=== PATIENT | female | born 1970 | race Caucasian/White ===

== ENCOUNTER → 2018-03-09 | Outpatient (CLI) | payer OTHER | LOC: MERGE 08:01 → BRMIMAGING 08:01 | PROVIDERS: ATTEND Family Medicine | DX: Z12.31 Encounter for screening mammogram for malignant neoplasm of breast (principal) ==

== ENCOUNTER 2018-12-26 11:04 | Emergency (ER) | payer OTHER ==
--- NOTE | 2018-12-26 12:29 | EDPHY ---
General Time Seen by Provider: 12/26/18 12:29 Narrative: CLINICAL IMPRESSION: URI, cough ASSESSMENT/PLAN: Patient is a 48-year-old female with no significant medical history who presents to the emergency department with 7 days of ongoing postnasal drip, throat irritation and cough. Her vitals were reviewed, no findings to suggest sepsis. CBC with no evidence of leukocytosis. BMP grossly unremarkable. Dimer mildly elevated, CT a chest revealed no evidence of pulmonary embolism. History of physical examination is most consistent with upper respiratory infection and cough, likely viral in nature. No findings today to suggest significant sinusitis, pharyngitis, epiglottitis, pneumonia, pulmonary embolism or serious bacterial illness. She had a recent influenza at urgent care that was negative, I did not feel this needs to be repeated. The patient will continue to be treated symptomatically, she will continue her prescriptions for prednisone, albuterol, Tessalon and codeine cough syrup as previously directed. She is well established with her primary care doctor and will call to schedule appointment for repeat examination. Conservative return precautions discussed. DIFFERENTIAL DX: Differential diagnosis including but not limited to viral infection, influenza, sinusitis, meningitis, pneumonia, pulmonary embolism ED COURSE: 1322: Case discussed with Dr. Deleon 1425: On repeat examination the patient still with dry cough, states she does not feel better after the nebulized treatment. Dimer is mildly elevated at 0.52. Will proceed with chest CT a. 1516: CTA with no evidence of pulmonary embolus. She does have an incidental pulmonary nodule that will need to have a repeat CT in 6-12 months. Examination was otherwise unremarkable. CHIEF COMPLAINT: Runny nose, congestion, cough, throat irritation HPI: Patient is a 48-year-old female with a history of hypothyroidism who presents to the emergency department with 7 days of ongoing postnasal drip, throat irritation and cough. Patient reports she recently traveled to [place], [facility] and [facility], during her 3 day travel home she started to have runny nose, congestion and postnasal drip. Since she has been home her symptoms have continued to worsen, she has now developed a very dry cough. She feels like no matter how hard she coughs she cannot get anything up. She has had intermittent fevers and chills, she has been regularly taking Tylenol. She reports bilateral earache, postnasal drip, throat irritation and cough. She denies any nausea, vomiting or abdominal pain. She is now developing general myalgias, denies headache or neck stiffness. She was seen and evaluated prior to her visit today by urgent care on 2 different occasions. At her 1st urgent care visit they prescribed her albuterol, codeine with cough syrup and Tessalon Perles, she had no improvement of her symptoms. She went back to urgent care yesterday with persistent symptoms, chest x-ray reportedly normal, they gave her ProAir and prednisone for which she has 2 doses and she is still not feeling better. Patient also with a reported negative influenza and RSV swab this weekend. PMH: Hypothyroidism Family History: Not contributory Social History: Never smoker, REVIEW OF SYSTEMS: All other systems negative Constitutional: Fevers and chills. Eyes: No discharge, vision change ENT: Throat tickle, congestion, earache. Cardiovascular: No chest pain, no palpitations. Respiratory: Cough. Gastrointestinal: No abdominal pain, no vomiting, diarrhea. Genitourinary: No hematuria, dysuria, flank pain. Musculoskeletal: Myalgias. No back pain, joint swelling, joint pain. Skin: No rashes, color change. Neurological: No headache, dizziness, weakness. PHYSICAL EXAM: General Appearance: Alert, tired appearing however not toxic-appearing. HENT: Normocephalic, atraumatic. Bilateral external ears are normal. Bilateral tympanic membranes are normal with pearly hudson reflex. Nares are clear, mucosa is pink. Oropharynx is clear, uvula is midline. There is no tonsillar enlargement or exudate. The dentition is normal. Her phonation is normal without hot potato voice. There is no stridor. Eyes: PERRLA, no acute vision change, nystagmus, swelling, discharge, pain or photosensitivity. Conjunctiva pink, no pallor or injection. Neck: Supple, nontender, no lymphadenopathy, no midline pain, FROM, no meningismus. Respiratory: There are no retractions, breath sounds globally diminished, faint expiratory wheeze. Frequent dry cough. Cardiac: Regular rate and rhythm, no murmurs or gallops. Gastrointestinal: Abdomen is soft, nontender, bowel sounds normal, no masses/ hernia, no rigidity, guarding or focal peritoneal findings. Neurological: Alert and oriented x 3, CN 2-12 grossly intact. Skin: Warm, dry, no rashes, no nodules on palpation. Musculoskeletal: Extremities are symmetrical, full range of motion, no tenderness, deformity, swelling, or erythema. Psychiatric: Normal mood and affect, there is no agitation. MEDICAL DECISION MAKING: Patient was seen independently. Secondary supervising physician at time of evaluation was Dr. Deleon, he did not evaluate this patient. Diagnosis: URI, cough. New, requires workup Summary: Patient is a 48-year-old female with no significant medical history who presents to the emergency department with ongoing and worsening cough, runny nose, congestion and typically throat. Patient is afebrile, in no acute distress and nontoxic appearing. Her vital signs were reviewed and no findings to suggest sepsis or serious bacterial illness. CBC and basic metabolic panel grossly unremarkable, no evidence of leukocytosis. Dimer slightly elevated at 0.52. CXR with no evidence of consolidation. CT a chest revealed no evidence of pulmonary embolism; she was noted to have a 7 mm nodule which will require follow-up with repeat CT in 6-12 months. I discussed this with the patient. History and physical examination is most consistent with upper respiratory infection and cough, likely viral in nature. There is no evidence of significant sinusitis, meningitis, pneumonia or serious bacterial illness. The patient was given IV fluids, albuterol neb and lidocaine neb with mild improvement of her symptoms. The patient will continue to be treated symptomatically and is instructed to followup with PCP for reevaluation within the next 2-3 days. On re-examination prior to discharge this patient is stable and well-appearing. Clinical lab tests: ordered / reviewed. Independent visualization of images, tracing, or specimens: Yes. Decision to obtain medical records or history from someone other than the patient: No Review / Summarize previous medical records: Yes Discussed patient with another provider: Yes, Dr. Deleon Patient Progress: Stable, discharged. - Diagnostics Imaging Results: Imaging Impressions Chest X-Ray 12/26/18 12:40 Impression: Mild airways disease/bronchitis. No pneumonia or change since 2 days prior. Chest/Thorax CTA 12/26/18 14:18 Impression: 1. No visible pulmonary embolus. 2. Scattered pulmonary nodules, including a 7 x 6 mm left lower lobe nodule. The 2017 Fleischner Society Guidelines recommend follow up unenhanced chest CT in 6-12 months for a low risk patient, then consider additional follow up at 18- 24 months. For a high risk patient, follow up CT is recommended in 6-12 months, then again at 18-24 months if there is no change. 3. Additional findings as above. Findings discussed with CONI Gamino on 12/26/2018 at 1516 hours. - History Smoking Status: Never smoked - Objective Vital Signs: Initial Vital Signs Temperature (C) 36.6 C 12/26/18 11:08 Heart Rate 82 12/26/18 11:08 Respiratory Rate 20 12/26/18 11:08 Blood Pressure 121/78 H 12/26/18 11:08 O2 Sat (%) 98 12/26/18 11:08 O2 Delivery Mode Room Air Allergies/Adverse Reactions: No Known Allergies Allergy (Unverified 12/26/18 11:07) Home Medications: Medication Instructions Recorded Levothyroxine 12/26/18 Prednisone 12/26/18 Proair Hfa 12/26/18 Tessalon Pearles 12/26/18 Laboratory Results: Laboratory Results 12/26/18 12:55 12/26/18 12:55 12/26/18 12/26/18 12/26/18 12:55 12:55 12:55 WBC 7.49 10^3/uL 10^3/uL (3.80-9.50) RBC 4.21 10^6/uL 10^6/uL (4.18-5.33) Hgb 13.3 g/dL g/dL (12.6-16.3) Hct 40.2 % % (38.0-47.0) MCV 95.5 fL fL (81.5-99.8) MCH 31.6 pg pg (27.9-34.1) MCHC 33.1 g/dL g/dL (32.4-36.7) RDW 13.0 % % (11.5-15.2) Plt Count 324 10^3/uL 10^3/uL (150-400) MPV 9.3 fL fL (8.7-11.7) Neut % (Auto) 80.7 % H % (39.3-74.2) Lymph % (Auto) 16.7 % % (15.0-45.0) Ocean % (Auto) 1.6 % L % (4.5-13.0) Eos % (Auto) 0.0 % L % (0.6-7.6) Baso % (Auto) 0.3 % % (0.3-1.7) Nucleat RBC Rel Count 0.0 % % (0.0-0.2) Absolute Neuts (auto) 6.05 10^3/uL 10^3/uL (1.70-6.50) Absolute Lymphs (auto) 1.25 10^3/uL 10^3/uL (1.00-3.00) Absolute Monos (auto) 0.12 10^3/uL L 10^3/uL (0.30-0.80) Absolute Eos (auto) 0.00 10^3/uL L 10^3/uL (0.03-0.40) Absolute Basos (auto) 0.02 10^3/uL 10^3/uL (0.02-0.10) Absolute Nucleated RBC 0.00 10^3/uL 10^3/uL (0-0.01) Immature Gran % 0.7 % % (0.0-1.1) Immature Gran # 0.05 10^3/uL 10^3/uL (0.00-0.10) D-Dimer 0.52 ug/mLFEU H ug/mLFEU (0.00-0.50) Sodium 137 mEq/L mEq/L (135-145) Potassium 4.5 mEq/L mEq/L (3.5-5.2) Chloride 102 mEq/L mEq/L (97-110) Carbon Dioxide 22 mEq/l mEq/l (22-31) Anion Gap 13 mEq/L mEq/L (6-14) BUN 13 mg/dL mg/dL (7-23) Creatinine 0.7 mg/dL mg/dL (0.6-1.0) Estimated GFR > 60 Glucose 129 mg/dL H mg/dL (70-100) Calcium 9.8 mg/dL mg/dL (8.5-10.4) Medications Given: Discontinued Medications Albuterol/Ipratropium (Duoneb) 3 ml IH EDNOW ONE Stop: 12/26/18 12:47 Last Admin: 12/26/18 12:55 Dose: 3 ml Sodium Chloride (Ns) 1,000 mls @ 0 mls/hr IV ONCE ONE PRN Reason: Wide Open Stop: 12/26/18 13:09 Last Admin: 12/26/18 13:22 Dose: 1,000 mls Lidocaine HCl (Lidocaine Hcl 4%) 100 mg IH EDNOW ONE Stop: 12/26/18 14:28 Last Admin: 12/26/18 14:51 Dose: 100 mg Departure - Departure Disposition: Home, Routine, Self-Care Clinical Impression: URI with cough and congestion Condition: Good Instructions: Upper Respiratory Infection (ED) Additional Instructions: DISCHARGE INSTRUCTIONS FROM YOUR PROVIDER Thank you for visiting our emergency department today. Please keep in mind that discharge from the emergency department does not mean that there is nothing wrong - it simply means that we have not identified an emergency condition that requires further evaluation or treatment in the hospital. You should always plan to follow up with primary care for re-evaluation of your condition in the next 2-3 days. You were noted to have an incidental pulmonary nodule, it is recommended that you follow up in 6-[address] months with a repeat CT. This can be done through your primary care provider. Continue your prednisone as previously directed, continue your inhaler as needed. Continue your codeine cough syrup and Tessalon Perles as directed. Rest, push non-diuretic, non-caffeinated fluids, consume a healthy diet, all to help support your immune system fight infection. Consider running a coolmist humidifier in the bedroom. Consider warm salt water gargles for sore throat. Consider over the counter saline nasal washes ie: Neilmed sinus rinse, [place] or [place]. Consider over the counter Mucinex for congestion and/or cough as directed. For pain control: You may take Tylenol, I recommend 500-1000 mg every 6-8 hours as needed. Take with food and a full glass of water. Stop taking if this is upsetting you stomach. Do not exceed 4000 mg in a 24 hr period. You may also take ibuprofen, recommend 400 mg every 6 hr. Take with food and a full glass of water. Stop taking if this upsets your stomach. Do not exceed 2400 mg in a 24 hr period. As discussed, in the setting of a viral illness, you may develop a secondary bacterial infection, requiring an antibiotic. Watch for new or changing symptoms ie: new ear pain or drainage, increasing cough, shortness of breath, high fever, or any other concerning symptoms. Schedule a follow-up appointment with your primary care physician in the next 2- 3 days for re-evaluation, sooner for any new concerns. Return for high fever, shaking chills, severe headache, facial redness or swelling, drainage from your ears, difficulty breathing or swallowing, throat tightness, drooling, change in voice, inability to open your mouth normally, severe neck pain, neck stiffness, shortness of breath, wheezing, noisy breathing , coughing up blood, chest pain, vomiting, diarrhea, bloody stools, decreased urine output or other concerns for dehydration, bloody urine, rash, dizziness, weakness, fainting, or for any other new, worsening or worrisome symptoms. People present with illnesses and injuries in different ways, and it is always possible that we have missed something. Again, thank you for choosing our emergency department. We hope that you feel better. Referrals: Tere Blair MD [Primary Care Provider] - 1 day without fail Stand Alone Forms: Work Excuse
[2018-12-26] MEDS ORDERED: IPRATROPIUM/ALBUTEROL 3 ML DEYVIAL IH ONE (12:46)
[2018-12-26] MEDS ORDERED: NS 1,000 ML IV ONE (13:08)
[2018-12-26 13:10] LABS: PLATELET COUNT 324 10^3/uL (150-400)
[2018-12-26] MEDS ORDERED: LIDOCAINE 4% 5 ML AMP IH ONE (14:27)
[2018-12-26] MEDS ORDERED: IOPAMIDOL (ISOVUE 370) 100 ML BTL IV ONE (14:27)
[2018-12-26 15:04] VITALS: BP 121/60
== END 2018-12-26 15:33 | disposition home or self-care (01) ==
DX: J06.9 Acute upper respiratory infection, unspecified (principal); R09.81 Nasal congestion; R05 Cough
CPT/HCPCS: Q9967

== ENCOUNTER → 2019-03-09 | Outpatient (CLI) | payer OTHER | LOC: EMCIMAGING 09:57 ==